=== PATIENT | female | born 1970 | race Caucasian/White ===

== ENCOUNTER → 2018-02-26 17:00 | Outpatient (CLI) | payer BC, SELFPAY ==
[2018-03-05 09:55] LABS: HPV Reflexed? NOT INDICATED
== END ==
PROVIDERS: Visit Provider Obstetrics & Gynecology
DX: R87.610 Atypical squamous cells of undetermined significance on cytologic smear of cervix (ASC-US) (principal)
CPT/HCPCS: 88175; G0145

== ENCOUNTER 2018-07-31 14:15 | Outpatient (RCR) | payer BC, SELFPAY ==
[2018-07-24 14:28] VITALS: BP 156/96; PULSE 79; RESP 16; TEMP 36.9; BMI 31.4
--- NOTE | 2018-07-24 18:19 | PCM.WC.HP ---
(1) Nonhealing surgical wound Status: Acute Current Visit: Yes Code(s): T81.89XA - Other complications of procedures, not elsewhere classified, initial encounter Comment: s/p crainiotomy incision anterior scalp (2) History of subarachnoid hemorrhage Status: Acute Current Visit: Yes Code(s): Z86.79 - Personal history of other diseases of the circulatory system (3) Tobacco abuse Status: Acute Current Visit: Yes Code(s): Z72.0 - Tobacco use History of Present Illness Date of Service: 07/24/18 Chief Complaint: Nonhealing incision to scalp status post craniotomy on May 25, 2018 History of Wound: This is a 48-year-old white female who presents to the wound healing center today with complaint of a nonhealing incision to the anterior scalp status post craniotomy on May 25, 2018 status post subarachnoid hemorrhage on May 24, 2018. She has a past medical history significant for subarachnoid hemorrhage, craniotomy, tobacco abuse, generalized anxiety disorder, and hypothyroidism. The patient states that her incision has been healing well, however last week her surgeon removed some tissue on the anterior portion of her incision and stated that she needed to be placed on Santyl for wound care to help with debridement. The patient denies any signs and symptoms of infection at this time. She has been applying the Santyl daily. She denies any other acute complaints. The patient otherwise denies any fever, chills, nausea, vomiting, shortness of breath, chest pain or pressure, palpitations, orthopnea, lower extremity edema, syncope or presyncopal episodes. Past Medical History Smoking Status: Current every day smoker Review of Systems Constitutional: Denies: Chills, Fever, Weight Change Eyes: Denies: Pain, Vision Change HEENT: Denies: Difficulty Hearing, Difficulty Swallowing, Sinus Congestion Cardiovascular: Denies: Chest Pain, Palpitations Respiratory: Denies: Cough, Shortness of Breath Gastrointestinal: Denies: Diarrhea, Nausea, Vomiting Genitourinary: Denies: Dysuria, Hematuria Skin: Reports: Wounds - See HPI Endocrine: Denies: Heat/ Cold Intolerance, Polydipsia, Polyuria Hematologic/ Lymphatic: Denies: Easy Bruising, Easy Bleeding - Physical Exam Vital Signs Temp Pulse Resp BP 98.4 F 79 16 156/96 H 07/24/18 14:28 07/24/18 14:28 07/24/18 14:28 07/24/18 14:28 General: Alert, Oriented x3, Cooperative, No apparent distress HEENT: PERRLA, EOMI Neck: Supple, No JVD, Negative Carotid Bruits Lungs: Clear to auscultation Cardiovascular: Regular rate, Regular Rhythm Abdomen: Soft, Non Tender Extremities: No edema, Capillary Refill Less than 3 Seconds Skin: Ulcer/ Wound - Nonhealing wound to anterior craniotomy incision on scalp with a small amount of adherent slough, no purulent drainage or surrounding erythema to the wound bed. Remaining incision well approximated and no signs of infection. Wound Measurements and Assessment WC - Nurse 1 - General Ulcer Measurement Start: 07/24/18 14:27 Freq: Status: Active Protocol: Activity Type Activity Date Activity User E-Sign Co-Sign Detail Recorded Client Recorded Date Recorded By Document 07/24/18 14:28 CAROLYN [id number] 07/24/18 14:36 CAROLYN 07/24/18 14:28 Wound Center Nurse 1 [Ulcer Assessment] #1 SCALP -Combined with other wound No -Current Size (cm) - Length 4.3 -Current Size (cm) - Width 0.8 -Current Size (cm) - Depth 0.1 -Total Square Cm 3.44 -Date of Last Picture (Recall this 07/24/18 field) -Photo Taken Yes -Epithelialization Medium 34-66% -Tunneling No -Undermining/Tunneling No -Circular Undermining No -Classification - Thickness Full Thickness without Exposed Support Structure -Exudate Amt Small (1-33%) -Exudate Type Serous -Wound Margin Distinct, Outline Attached -Granulation Amt Small (1-33%) -Granulation Quality Pale [place] -Slough/Fibrin Yes -Necrosis Amt None Present (0 %) -Necrotic Tissue Type Adherent Slough -Structure Exposed None/Limited to Skin Breakdown -Texture (Lydia-wound Skin Appearance) No Abnormality -Moisture (Lydia-wound Skin Appearance No Abnormality ) -Color (Lydia-wound Skin Appearance) No Abnormality -Temperature (Lydia-wound Skin No Abnormality Appearance) (Pt Warm) -Tenderness on Palpation (Lydia-wound Yes Skin Appearance) -Ulcer Cleansing Rinsed/ Irrigated with Saline -Foul Odor after Cleansing No -Anesthetic Used 5% Lidocaine Gel Neurological: Neuro grossly intact Psych/Mental Status: Normal Affect, Appropriate, Alert and oriented to time, place, person, mood and affect Debridement Note Wound debrided: Nonhealing scalp incision status post craniotomy wound Laterality: Not Applicable Type of Debridement: Excisional debridement Anesthesia Used: 5% Lidocaine Gel Depth: in the subcutaneous layer Percentage of wound debrided: 100 Instrument Used: 3mm curette Tissue Removed: Slough and devitalized tissue Severity: Fat Layer Exposed Amount of bleeding with debridement: Mild Bleeding Controlled with: Pressure Patient tolerated procedure well Assessment/Plan Active Problems History of subarachnoid hemorrhage (Acute) Nonhealing surgical wound (Acute) s/p crainiotomy incision anterior scalp Tobacco abuse (Acute) Assessment: Nonhealing scalp incision status post craniotomy Plan: The patient was seen and examined at the wound center today and was updated on the plan of care. A subcutaneous debridement was performed today. The patient tolerated the procedure well. The patients wound care will consist of: Promogran covered with gauze change daily and discontinue the Santyl. Wound cultures held off at this time as there are no signs of infection. Patient educated on the importance of diet on wound healing and instructed to increase protein and vitamin C intake. Patient verbalized understanding. Patient will follow up at wound healing center in one week or sooner if needed. This note was generated with [employer] dictation software. It may contain incorrect words, spelling, and punctuation that were not noted in checking the note before signing. Code Visit Office Visits / Consults: [id number] OV L4 New [id number]: [id number] Lolly subq tissue 20 sq cm/<
[2018-07-31 14:17] VITALS: BP 150/96; PULSE 93; RESP 16; TEMP 36.3; BMI 31.4
--- NOTE | 2018-08-01 15:55 | PN.PCM_ITS ---
(1) Nonhealing surgical wound Status: Acute Current Visit: Yes Code(s): T81.89XA - Other complications of procedures, not elsewhere classified, initial encounter Comment: s/p crainiotomy incision anterior scalp (2) History of subarachnoid hemorrhage Status: Acute Current Visit: Yes Code(s): Z86.79 - Personal history of other diseases of the circulatory system (3) Tobacco abuse Status: Acute Current Visit: Yes Code(s): Z72.0 - Tobacco use Type of Wound Date of Service: 07/31/18 Chief Complaint: Nonhealing incision to scalp status post craniotomy on May 25, 2018 History of Wound: This is a 48-year-old white female who presents to the wound healing center today with complaint of a nonhealing incision to the anterior scalp status post craniotomy on May 25, 2018 status post subarachnoid hemorrhage on May 24, 2018. She has a past medical history significant for subarachnoid hemorrhage, craniotomy, tobacco abuse, generalized anxiety disorder, and hypothyroidism. The patient states that her incision has been healing well, however last week her surgeon removed some tissue on the anterior portion of her incision and stated that she needed to be placed on Santyl for wound care to help with debridement. The patient denies any signs and symptoms of infection at this time. She has been applying the Santyl daily. She denies any other acute complaints. The patient otherwise denies any fever, chills, nausea, vomiting, shortness of breath, chest pain or pressure, palpitations, orthopnea, lower extremity edema, syncope or presyncopal episodes. Progress of Wound: Site is now healed. The patient otherwise denies any fever, chills, nausea, vomiting, shortness of breath, chest pain or pressure, palpitations, orthopnea, lower extremity edema, syncope or presyncopal episodes. - Physical Exam Vital Signs Temp Pulse Resp BP 97.3 F L 93 16 150/96 H 07/31/18 14:17 07/31/18 14:17 07/31/18 14:17 07/31/18 14:17 General: Alert, Oriented x3, Cooperative, No apparent distress HEENT: Atraumatic Neck: Supple Lungs: Clear to auscultation, Normal air movement Cardiovascular: Regular rate, Regular Rhythm Abdomen: Soft, Non Tender Skin: Ulcer/ Wound - Nonhealing wound to scalp status post craniotomy is now healed, full epithelialization present, no signs of infection at this time. No redness or purulent drainage at this time, site well approximated. Wound Measurements and Assessment - Nurse 1 - General Ulcer Measurement Start: 07/24/18 14:27 Freq: Status: Active Protocol: Activity Type Activity Date Activity User E-Sign Co-Sign Detail Recorded Client Recorded Date Recorded By Document 07/31/18 14:17 [id number] 07/31/18 14:23 07/31/18 14:17 Wound Center Nurse 1 [Ulcer Assessment] #1 SCALP -Combined with other wound No -Current Size (cm) - Length 4.3 -Current Size (cm) - Width 0.2 -Current Size (cm) - Depth 0.1 -Total Square Cm 0.86 -Photo Taken No -Epithelialization Medium 34-66% -Tunneling No -Undermining/Tunneling No -Circular Undermining No -Exudate Amt None Present (0 %) -Wound Margin Distinct, Outline Attached -Granulation Amt None Present (0 %) -Slough/Fibrin Yes -Necrosis Amt Large (67-100%) -Necrotic Tissue Type Eschar -Structure Exposed None/Limited to Skin Breakdown -Texture (Lydia-wound Skin Appearance) Assessed Scarring -Moisture (Lydia-wound Skin Appearance No Abnormality ) Assessed -Color (Lydia-wound Skin Appearance) No Abnormality Assessed -Temperature (Lydia-wound Skin No Abnormality Appearance) (Pt Warm) -Tenderness on Palpation (Lydia-wound No Skin Appearance) -Ulcer Cleansing Rinsed/ Irrigated with Saline -Foul Odor after Cleansing No -Anesthetic Used 4% Lidocaine Solution - Nurse 2 - General Ulcer CM Notes Start: 07/24/18 14:27 Freq: Status: Active Protocol: Activity Type Activity Date Activity User E-Sign Co-Sign Detail Recorded Client Recorded Date Recorded By Document 07/31/18 15:02 [id number] 07/31/18 15:04 07/31/18 15:02 Wound Center Nurse 2 [Procedure/Treatment] -Time 15:02 -Correct Patient Yes -Correct Side, Site, Position Yes -Correct Procedure Yes -Procedure Performed Yes -Post Debridement Size (cm) - Length 0 -Post Debridement Size (cm) - Width 0 -Post Debridement Size (cm) - Depth 0 -Total Square Cm 0 -Wound/Ulcer Outcome Healed- Epithelialized -Ulcer Cleansing Rinsed/ Irrigated with Saline -Foul Odor after Cleansing No -Bioengineered Tissue No -Topical Lidocaine (%) 4 -Bleeding Controlled with NA -Treatment Response Procedure Tolerated Well [See Physician Procedure note for Specifics] Pain Scale: 0-10 Numeric [Pain] -Is Patient Pain Free? Yes Neurological: Neuro grossly intact Psych/Mental Status: Normal Affect, Appropriate, Alert and oriented to time, place, person, mood and affect Debridement Note Post-Debridement Measurements/Treatment WC - Nurse 2 - General Ulcer CM Notes Start: 07/24/18 14:27 Freq: Status: Active Protocol: Activity Type Activity Date Activity User E-Sign Co-Sign Detail Recorded Client Recorded Date Recorded By Document 07/31/18 15:02 [id number] 07/31/18 15:04 07/31/18 15:02 Wound Center Nurse 2 #1 SCALP -Time 15:02 -Correct Patient Yes -Correct Side, Site, Position Yes -Correct Procedure Yes -Procedure Performed Yes -Post Debridement Size (cm) - Length 0 -Post Debridement Size (cm) - Width 0 -Post Debridement Size (cm) - Depth 0 -Total Square Cm 0 -Wound/Ulcer Outcome Healed- Epithelialized -Ulcer Cleansing Rinsed/ Irrigated with Saline -Foul Odor after Cleansing No -Bioengineered Tissue No -Topical Lidocaine (%) 4 -Bleeding Controlled with NA -Treatment Response Procedure Tolerated Well Pain Scale: 0-10 Numeric Is Patient Pain Free? Yes No debridement was completed today Assessment/Plan Active Problems History of subarachnoid hemorrhage (Acute) Nonhealing surgical wound (Acute) s/p crainiotomy incision anterior scalp Tobacco abuse (Acute) Assessment: Nonhealing scalp incision status post craniotomy Plan: The patient was seen and examined at the wound center today and was updated on the plan of care. Her wound that was not healing from the prior incision to the scalp status post craniotomy is now healed. Discussed with patient that she may apply triple antibiotic ointment over the site for the next week. After a month she may utilize vitamin E to help with the scar. Discussed signs and symptoms of infection that will require urgent medical attention. Patient discharged from the wound healing center no follow-up as needed. This note was generated with [employer] software. It may contain incorrect words, spelling, and punctuation that were not noted in checking the note before signing. Code Visit Office Visits / Consults: [id number] OV L3 Est
== END 2018-08-15 23:59 ==
LOC: WC 14:15
PROVIDERS: Family Provider Family Medicine; PCP Family Medicine; Visit Provider Nurse Practitioner Family
DX: T81.89XA Other complications of procedures, not elsewhere classified, initial encounter (principal); Y83.8 Other surgical procedures as the cause of abnormal reaction of the patient, or of later complication, without mention of misadventure at the time of the procedure; Z86.79 Personal history of other diseases of the circulatory system; Z72.0 Tobacco use
CPT/HCPCS: 11042; 99203; 99213; J7030; A4216; G0463

== ENCOUNTER → 2021-06-05 14:44 | Outpatient (CLI) | payer BC, SELFPAY ==
--- NOTE | 2021-06-05 14:53 | CT_ITS ---
STUDY: CT BRAIN WITH AND WITHOUT CONTRAST REASON FOR EXAM: Female, 50 years old. 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 The examination was performed with intravenous administration of IV 50mL Isovue-370. Individualized dose optimization techniques were used for this CT. COMPARISON: None. FINDINGS: Normal soft tissue structures. The patient is status post right frontal craniotomy. Normal size ventricles and extra-axial spaces for the patient''s age. Focal encephalomalacia is seen along the anterior inferior aspect of the right temporal lobe. Aneurysmal clip is seen in the region of the right anterior cerebral artery. Normal basal ganglia and thalami. Normal brainstem. Normal cerebellum. There is no intracranial hemorrhage. There are no findings of an acute ischemic infarction. Normal visualized paranasal sinuses. CT/Brain/Head W/WO Contrast IMPRESSION: Status post right frontal craniotomy and aneurysm clipping on the right side of the ione of [place]. Encephalomalacia in the right frontal lobe. Electronically Signed: Jose Alfredo Starr MD at 8:31 EDT , Service support ,
== END ==
PROVIDERS: PCP Family Medicine; Referring Provider Family Medicine; Visit Provider Family Medicine
DX: I60.7 Nontraumatic subarachnoid hemorrhage from unspecified intracranial artery (principal); R42 Dizziness and giddiness; G93.89 Other specified disorders of brain
CPT/HCPCS: 70470; Q9967